=== PATIENT | male | born 1995 | race Caucasian/White ===

== ENCOUNTER 2016-10-09 00:23 | Emergency (ER) | payer SELFPAY ==
[~2016-10-09] VITALS: Ht 170.2 cm; Wt 82.6 kg
[2016-10-09 00:31] VITALS: BP 153/97
--- NOTE | 2016-10-09 00:45 | NUR ---
PATIENT LEFT WITHOUT BEING SEEN BY DR. Carballo. NO FURTHER CARE PROVIDED FOR PATIENT.
== END 2016-10-09 00:45 | disposition left against medical advice (07) ==
LOC: MED 00:23
DX: R06.02 Shortness of breath (principal); Z53.21 Procedure and treatment not carried out due to patient leaving prior to being seen by health care provider

== ENCOUNTER 2016-10-09 09:45 | Emergency (ER) | payer MEDICAID ==
[~2016-10-09] VITALS: Ht 170.2 cm; Wt 82.6 kg
[2016-10-09 09:54] VITALS: BP 153/79
--- NOTE | 2016-10-09 09:57 | NUR ---
Patient ambulated to bed 05.
--- NOTE | 2016-10-09 10:02 | NUR ---
AAO PT BEING ASSESS BY DR HOBSON AT BEDSIDE
--- NOTE | 2016-10-09 10:03 | NUR ---
Dr. Cobos evaluating patient at bedside.
--- NOTE | 2016-10-09 10:03 | NUR ---
PATIENT PRESENTS TO ED WITH CONGESTION, SORE THROAT, PAIN IN CHEST UPON INSPIRATION X1 WEEK; DENIES DIARRHEA; SKIN IS PINK/WARM/DRY; AAOX4 WITH EVEN AND STEADY GAIT; LUNGS CLEAR BL; HR EVEN AND REGULAR; PT DENIES ANY FEVER OR SOB AT THIS TIME; PATIENT STATES PAIN OF 10/10 AT THIS TIME; VSS; PATIENT POSITIONED FOR COMFORT; HOB ELEVATED; BEDRAILS UP X2; BED DOWN. ER MD MADE AWARE OF PT STATUS.
[2016-10-09 10:15] VITALS: BP 144/81
--- NOTE | 2016-10-09 10:15 | NUR ---
Patient discharged with v/s stable. Written and verbal after care instructions given and explained. Patient alert, oriented and verbalized understanding of instructions. Ambulatory with steady gait. All questions addressed prior to discharge. ID band removed. Patient advised to follow up with PMD. Rx of DEXTROMETHORPHAN given. Patient educated on indication of medication including possible reaction and side effects. Opportunity to ask questions provided and answered.
== END 2016-10-09 10:15 | disposition home or self-care (01) ==
LOC: MED 09:45
DX: J11.1 Influenza due to unidentified influenza virus with other respiratory manifestations (principal)

== ENCOUNTER 2016-10-15 09:18 | Emergency (ER) | payer MEDICAID ==
[~2016-10-15] VITALS: Ht 170.2 cm; Wt 83.0 kg
[2016-10-15 09:20] VITALS: BP 135/92
--- NOTE | 2016-10-15 09:26 | NUR ---
PT TO BED 2 AT THIS TIME,
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
--- NOTE | 2016-10-15 09:43 | NUR ---
PT AAO, IN BED WATER AND ORANGE GIVEN,NO UNUSUAL OBSERVATION NOTED AT THIS TIME.
[2016-10-15] MEDS ORDERED: IBUPROFEN 800 MG TAB PO ONE (09:45)
--- NOTE | 2016-10-15 09:48 | NUR ---
PT WENT FOR XRAY VIA WHEELCHAIR PT AAO.
[2016-10-15] MEDS ORDERED: IBUPROFEN 800 MG TAB ONE (10:01)
--- NOTE | 2016-10-15 10:34 | NUR ---
PT AAO, TALKING IN THE PHONE.
[2016-10-15 10:48] VITALS: BP 131/80
== END 2016-10-15 10:49 | disposition home or self-care (01) ==
LOC: MED 09:18
DX: S39.012A Strain of muscle, fascia and tendon of lower back, initial encounter (principal); J45.909 Unspecified asthma, uncomplicated; R51 Headache; R03.0 Elevated blood-pressure reading, without diagnosis of hypertension; V89.2XXA Person injured in unspecified motor-vehicle accident, traffic, initial encounter; Y93.89 Activity, other specified; Y92.89 Other specified places as the place of occurrence of the external cause; Y99.8 Other external cause status